=== PATIENT | male | born 1985 | race Two or more races ===

== ENCOUNTER 2023-12-16 10:30 | Emergency (ER) | payer SELFPAY ==
[~2023-12-16] VITALS: Ht 167.6 cm; Wt 65.8 kg
[2023-12-16] MEDS ORDERED: KETOROLAC TROMETHAMINE 15 MG/ML VIAL ONE (11:23)
[2023-12-16] MEDS ORDERED: PANTOPRAZOLE 40 MG VIAL ONE (11:24)
[2023-12-16] MEDS: PANTOPRAZOLE 40 MG VIAL IV ONE (11:25)
[2023-12-16] MEDS: KETOROLAC TROMETHAMINE 15 MG/ML VIAL IV ONE (11:25)
[2023-12-16 11:41] LABS: BASOPHILS % (AUTO) 0.4 % (0.0-2.0); EOSINOPHILS # (AUTO) 0.1 K/uL (0.0-0.7); EOSINOPHILS % (AUTO) 1.1 % (0.0-6.0); HEMATOCRIT 44 % (39-51); HEMOGLOBIN 15.1 g/dL (13.5-17.5); LYMPHOCYTES # (AUTO) 1.4 K/uL (0.8-4.8); LYMPHOCYTES % (AUTO) 22.5 % (20.0-44.0); MEAN CORPUSCULAR HEMOGLOBIN 30 PG (26.0-33.0); MEAN CORPUSCULAR HGB CONC 34 g/dl (31.0-36.0); MEAN CORPUSCULAR VOLUME 89 fL (80-96); MONOCYTES # (AUTO) 0.4 K/uL (0.1-1.30); MONOCYTES % (AUTO) 6.8 % (2.0-12.0); NEUTROPHILS # (AUTO) 4.4 K/uL (1.8-8.9); NEUTROPHILS % (AUTO) 69.2 % (43.0-81.0); PLATELET COUNT (AUTO) 261 K/uL (150-450); RED BLOOD CELL COUNT(AUTO) 4.96 MIL/uL (4.5-6.0); WHITE BLOOD COUNT (AUTO) 6.4 K/uL (4.3-11.0)
[2023-12-16 12:04] LABS: CALCIUM, SERUM 9.2 mg/dL (8.5-10.1); CREATININE 0.9 mg/dL (0.6-1.3); POTASSIUM 4.1 mmol/L (3.5-5.1)
[2023-12-16 12:10] LABS: ALBUMIN 3.7 g/dL (3.4-5.0); BILIRUBIN,DIRECT 0.1 mg/dL (0.0-0.2); BILIRUBIN,TOTAL 0.4 mg/dL (0.2-1.0); TOTAL PROTEIN, SERUM 7.6 g/dL (6.4-8.2)
[2023-12-16] MEDS ORDERED: MAG-55 PO (13:17)
[2023-12-16] MEDS ORDERED: PANT20TA2 PO (13:17)
[2023-12-16] MEDS ORDERED: KETO10TA2 PO (13:17)
[2023-12-16 13:29] VITALS: BP 118/82; TEMP 97.9; O2SAT 100
== END 2023-12-16 13:30 | disposition home or self-care (01) ==
LOC: ER 10:35
DX: K29.70 Gastritis, unspecified, without bleeding (principal); R10.11 Right upper quadrant pain; Z79.899 Other long term (current) drug therapy
CPT/HCPCS: 99285; 96374; 76705; 71045; 96375; 85025; 80048; 83690; 80076; 36415; J1885